=== PATIENT | male | born 1985 | race Caucasian/White ===

== ENCOUNTER 2016-11-11 00:23 | Emergency (ER) | payer OTHER ==
[2016-11-11 00:36] VITALS: BP 145/80
[2016-11-11] MEDS ORDERED: IBUPROFEN 800 MG TABLET PO ONE (00:37)
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
== END 2016-11-11 02:05 | disposition home or self-care (01) ==
LOC: ER 00:23
DX: M54.89 Other dorsalgia (principal); V43.62XA Car passenger injured in collision with other type car in traffic accident, initial encounter; Z87.891 Personal history of nicotine dependence
CPT/HCPCS: 99283